=== PATIENT | male | born 1955 | race American Indian/Alaskan Native ===

== ENCOUNTER 2019-11-27 05:55 | Day surgery (SDC) | payer OTHER, SELFPAY ==
[2019-11-22 08:42] VITALS: BMI 25.7
[2019-11-27] VITALS (11 sets, daily range): BP systolic 80–146; BP diastolic 42–98; PULSE 57–92; RESP 10–18; TEMP 36.2–36.7; O2SAT 97–100; BMI 25.7
--- NOTE | 2019-11-27 06:00 | DI.RAD.S_ITS ---
PROCEDURE: XR KNEE RT 1TO2V INDICATIONS: post op TECHNIQUE: 2 view(s) of the knee acquired. COMPARISON: [facility] LIZZIE Thompson, XR KNEE ARTHRITIC SERIES RT, 06/07/2018, 9:05. FINDINGS: Bones: Patient is status post knee joint arthroplasty. Hardware components are in expected positions. Visualized bony structures are intact. Soft tissues: Overlying postoperative changes are noted. IMPRESSION: Expected postoperative alignment Dictated by: Michael Laguerre M.D. on 11/27/2019 at 10:06 Approved by: Michael Laguerre M.D. on 11/27/2019 at 10:07
[2019-11-27] MEDS: PREGABALIN 75 MG CAPSULE PO (06:54)
[2019-11-27] MEDS: ACETAMINOPHEN 325 MG TABLET 975 MG PO (06:55)
[2019-11-27] MEDS: CELECOXIB 200 MG CAPSULE PO (06:55)
--- NOTE | 2019-11-27 07:30 | P.OP_ITS ---
Operative Date/Time/Diagnoses Date of procedure: 11/27/19 Time of procedure: 09:31 Pre-op diagnosis: Right knee osteoarthritis Post-op diagnosis: same Procedure & Clinicians Procedure: Right total knee arthroplasty Same procedure as scheduled: Yes Indications: The patient presents today for total knee arthroplasty after failure of conservative treatment. The nature of the procedure including the risks and benefits, alternatives, postoperative course and expected outcome were discussed and all questions answered. Consent was obtained. Operative site confirmed and marked. Surgeon: Piotr Hutchison Forest [employer] Prevention Specialist: Arvind Coe Anesthesia Type: General, Spinal and Local Operative Notes Findings: The patient had a significant preoperative flexion contracture of 12- 15 degrees. A +2 femoral cut was initially made. The initial tibial cut took approximately 8 mm off the less affected medial side. The knee was still tight in both flexion and extension so another 2 mm was removed from the tibia. The knee was still somewhat tight laterally especially in extension. Releases were done of the lateral capsule using a 15 blade in a pie crust technique. This nicely balance the knee in both flexion and extension. The knee went out to full extension with the releases with flexion beyond 135?. Patellar tracking was excellent. Closure Type: primary Specimen(s): none sent Prosthetic devices, grafts, tissues, transplants, or devices: Foley and Nephew Norberto BCS: 8 femoral component, 7 tibial component, 9 mm BCS polyethylene tray and 38 x 9 mm round patella Applied: implant(s) Estimated Blood Loss (mL): 10 Tourniquet time (min): 60 Procedure in detail: The patient was taken to the operative suite and placed under anesthesia. The patient was given prophylactic antibiotics prior to surgery. The patient was also given tranexamic acid, 1 g, just prior to surgery for postoperative hemostasis. The lateral knee was prepped and the joint injected with 20 mL of 1% Lidocaine with epinephrine. The knee was then prepped and draped in usual sterile fashion. The leg was exsanguinated with an Esmarch dressing and the tourniquet raised to 250 torr. A 15 cm anterior incision was made. Next a medial trivector arthrotomy was made. The extensor mechanism was marked to ensure accurate repair. Initial exposing dissection was carried out medially and laterally. The knee was then flexed and the intramedullary femoral guide junie placed. The distal femoral cut was made in 6? of valgus at the +2 position. The femoral size was measured and the appropriate cutting block was then placed and the anterior, posterior and chamfer cuts made. The intramedullary tibial alignment junie was then placed. The guide was set to remove approximately 8 mm from the less affected medial side. The proximal tibial cut was then made with an oscillating saw. All meniscus and bony debris was then removed. Posterior femoral osteophytes removed with a curved osteotome. Flexion extension gaps were checked. The knee was still tight in both flexion and extension. Another 2 mm was removed from the tibia which balanced the gaps. There was still some tightness laterally especially in extension. The lateral capsule was released to balance the knee using a pie crust technique with a 15 blade. The soft tissues were then injected with a combination of 20 mL of half percent Marcaine with epinephrine and 20 mL of Exparel. The trial components were then placed. The knee was then extended and the patellar thickness was measured and a cut made removing approximately 9 mm of bone. The patella was then sized and drilled. Some excess lateral bone was excised and the patellofemoral ligament released. The knee went into full extension and flexion beyond 135?. There was excellent medial-lateral balance throughout motion. Patellar tracking was excellent. The trial components were removed and the knee was cleansed with Pulsavac irrigation and dried. The final components were cemented with high viscosity vacuum mixed bone cement with antibiotics. The joint was filled with a dilute Betadine solution. The knee was held in extension and the patellar clamped until the cement was adequately cured. The knee was then irrigated. The extensor mechanism was closed with 5 interrupted #1 Vicryl sutures and a running Quill suture at approximately 90 degrees of flexion. The joint was then injected with a combination of 1 g of tranexamic acid and 20 mL of quarter percent Marcaine with epinephrine. The subcutaneous tissue was closed with 2 0 Vicryl. The skin was closed with sharon and surgical adhesive. An Aquacel dressing and Stas wrap were then applied. The patient tolerated the procedure well and was returned to recovery room in good condition. Complications: none Post-operative Condition: stable Disposition: PACU Plan for aftercare: [facility] protocol for total knee arthroplasty.
--- NOTE | 2019-11-27 07:30 | PM.PREOP ---
Pre-operative Note Interval Note History & Physical reviewed/Exam performed by Physician: Yes Changes to H&P: No
[2019-11-27] MEDS: CEFAZOLIN 2 GM/100 ML FROZ.PIGGY IV ×2 (07:49→15:58)
[2019-11-27] MEDS: TRANEXAMIC ACID 1,000 MG VIAL 1000 MG IV (08:19)
--- NOTE | 2019-11-27 08:33 | SUR.OPER ---
Addendum entered by Michael Islas R.N. 11/27/19 08:34: Hip brace secured to right side of OR table. Original Note: Supine on padded OR bed. Pillow under head, arms secured on padded armboards <90 degree abduction. Safety belt across torso. Non-operative leg secured with tape over blanket over lower leg. Sandbag used as bump under right hip.Operative leg secured in Mic positioner. Foam padded brace at thigh of operative leg.
[2019-11-27] MEDS: BUPIVACAINE 0.25% W/ EPI (PF) 40 ML, BUPIVACAINE LIPOSOME 266 MG, SODIUM CHLORIDE 0.9% ... INJ (08:56)
[2019-11-27] MEDS: BUPIVACAINE 0.25% W/ EPI (PF) 20 ML, TRANEXAMIC ACID 1,000 MG, SODIUM CHLORIDE 0.9% 10 ML INJ (08:58)
[2019-11-27] MEDS: LIDOCAINE 1% W/EPI 20 ML INJ (09:00)
[2019-11-27] MEDS: LACTATED RINGERS 1,000 ML 42 ML IV (09:07)
--- NOTE | 2019-11-27 10:05 | SUR.PHASEI ---
first bag of LR hung in preop, 1000cc infused in OR and 2nd bag of LR hung in OR by WATER TREATMENT PLANT REPAIRER. total IV fluid for pt = 1400cc
[2019-11-27] MEDS: LACTATED RINGERS 1,000 ML 125 ML IV (11:02)
[2019-11-27] MEDS: IBUPROFEN 400 MG TABLET PO (12:05)
--- NOTE | 2019-11-27 12:14 | PC.NURSE ---
Addendum entered by Kristy Bear R.N. 11/27/19 14:35: PAIN - pt states discomfort r ankle, moving freely on command, adjusted pillow support, ice pack applied, given scheduled tylenol, phys therapy in now for eval. Addendum entered by Kristy Bear R.N. 11/27/19 12:56: PAIN - r knee discomfort remains 4-5 on scale 0/10, did lilian lunch, discussed medications and pt agreed to oxycodone and given 10mg po. 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
[2019-11-27] MEDS: OXYCODONE IR 10 MG TABLET PO ×2 (12:58→16:01)
--- NOTE | 2019-11-27 14:29 | PT.IIE ---
Current Diagnoses Unilateral primary osteoarthritis, right knee (11/27/19) Surgery Performed Operation Date: 11/27/19 07:45 Actual Procedures p Total Knee Arthroplasty(Right) - Piotr Hutchison MD Surgical History (Last Updated 11/22/19 @ 09:13 by Crissy Cruz RN) Hx of hernia repair (Acute ~1999) Hx of tonsillectomy (Acute) Medical History (Last Updated 11/22/19 @ 09:13 by Crissy Cruz RN) Depression (Acute) Diverticulosis (Acute) Hand fracture, right (Acute ~1994) Hearing impaired (Acute) HLD (hyperlipidemia) (Acute) HTN (hypertension) (Acute) Jaw fracture (Acute ~1977) Left ulnar fracture (Acute ~1972) Osteoarthritis (Acute) Physical Therapy Inpatient Evaluation/Re-Eval M1 PT/OT-IP Prior Functional Status Start: 11/27/19 16:51 Freq: NEEDED Status: Active Protocol: Document 11/27/19 14:29 AB (Rec: 11/27/19 17:00 AB [id number]) Medical Review Prior Functional Status Medical History Reviewed Yes Communication able to make needs known Mobility and Gait pt stated that he is independent with all mobilities and ambulation without AD Social History Household Members spouse,family Living Arrangements House Number of Floors (Floors) One Floor Home Environment Ramp Home Equipment Front Wheel Walker,Straight Cane,Manual Wheelchair M2 PT-IP Current Condition Start: 11/27/19 16:51 Freq: NEEDED Status: Active Protocol: Document 11/27/19 14:29 AB (Rec: 11/27/19 17:00 AB [id number]) Physical Therapy Current Condition Current Condition Evaluation Date 11/27/19 Treatment Diagnosis s/p R TKA; difficulty in walking Onset Date 11/27/19 Weight Bearing Status Weight Bearing Status Weight Bear as Tolerated M3 PT-IP Subjective Start: 11/27/19 16:51 Freq: NEEDED Status: Active Protocol: Document 11/27/19 14:29 AB (Rec: 11/27/19 17:00 AB [id number]) Subjective Physical Therapy Visit Type Type Initial Evaluation Visit Start Time 14:29 Visit Stop Time 15:04 Total Visit Minutes 33 Number of BAND MAKER Visits 0 Physical Therapy Visit Comments Patient Comments pt agreeable to do PT Therapy Pain Assessment Pain When Pain Assessed At Rest Location Right Knee Intensity 5 Scale Used Numeric (1 - 10) Pain Management Techniques Apply Cold,Re-positioning, Timing of Activity with Medications M4 PT-IP Mobility and Gait Start: 11/27/19 16:51 Freq: NEEDED Status: Active Protocol: Document 11/27/19 14:29 AB (Rec: 11/27/19 17:00 AB [id number]) PT-Bed Mobility Assessment Supine to Sit Supine to Sit Standby Assistance Sit to Supine Sit to Supine Standby Assistance Scooting Scooting to Edge of Bed Standby Assistance PT-Transfer Assessment Sit to and From Stand Sit to and from Stand Standby Assistance Equipment Transfer Assistive Device Gait Belt,Front Wheeled Walker Orthotic/Prosthetic Devices or Brace: No Transfers Transfer Destination Chair Transfer Technique ambulated using FWW Transfer Ability Level of Assist Standby Assistance Gait Assessment Gait Gait Assistance Required: Standby Assistance Distance (Feet) 80 Able to Maintain Weight Bearing Status Yes During Gait Assistive Devices Assistive Device Gait Belt,Front Wheeled Walker Orthotic/Prosthetic Devices or Brace: No Gait Deviations General Gait Pattern Antalgic Factors Limiting Gait Function Factors Limiting Gait Function Decreased Activity Tolerance, Decreased Strength,Pain,Poor Balance Comments Gait Comments pt ambulated using FWW SBA ~ 80 ft. presents with antalgic gait but no LOB PT-Balance Assessment Sitting Balance and Reactions Static Sitting Balance Ability Normal Dynamic Sitting Balance Ability Good Standing Balance and Reactions Static Standing Balance Ability Fair Dynamic Standing Balance Ability Fair Device Used FWW M5 PT-IP Objective Assessments Start: 11/27/19 16:51 Freq: NEEDED Status: Active Protocol: Document 11/27/19 14:29 AB (Rec: 11/27/19 17:00 AB [id number]) Orientation Orientation/Cognition Level of Alertness Alert Orientation Name,Age,Place,Situation Language Function Ability No Deficits Noted Safety Awareness Understands Safety Issues Memory Description No Deficits Noted Gross Range of Motion Lower Extremity ROM Assessment Within Functional Limits Impairments R knee flexion: ~ 100 deg Strength Lower Extremity Strength Assessment Right Impaired Hip 4/5 Knee 3+/5 Coordination Assessment Gross Coordination Gross Coordination WNL Sensation Assessment Sensation Gross Sensation WNL Muscle Tone Muscle Tone WNL Yes M6 PT-IP Treatment Start: 11/27/19 16:51 Freq: NEEDED Status: Active Protocol: Document 11/27/19 14:29 AB (Rec: 11/27/19 17:00 AB [id number]) Physical Therapy Treatment Exercises Exercises Heel Slides Education Education Provided Precautions,Weight Bearing Status,Post-Op Packet,Safety M7 PT-IP Assessment and Plan Start: 11/27/19 16:51 Freq: NEEDED Status: Active Protocol: Document 11/27/19 14:29 AB (Rec: 11/27/19 17:00 AB [id number]) PT Summary Assessment and Plan Potential Rehabilitation Potential Good Status of Condition at Evaluation Stable Summary Impairments Pain,ROM,Strength,Balance,Bed Mobility,Transfers,Gait, Activity Tolerance Assessment Summary pt requiring SBA with mobility and plans to go home with spouse to assist him. pt is set up for outpt PT. pt may go home when medically stable Goals Bed Mobility Goal Independent Transfer Goal Independent,Front Wheeled Walker Gait Goal Independent,Front Wheel Walker Gait Distance 200 Days to Meet Goals 3 Frequency of Treatment Frequency Of Treatment Twice a Day Treatment Plan Physical Therapy Treatment Plan Bed Mobility Training,Transfer Training,Gait Training, Therapeutic Exercise,Balance Retraining,Post Op Education, Discharge Planning,Hot or Cold Pack,Neuromuscular Re-ed, Coordination Retraining,Manual Therapy Recommendations To Nursing Amount of Assist Needed Standby Assistance Discharge Recommendations PT Discharge Recommendations Home with Assistance, Outpatient PT
[2019-11-27] MEDS: ACETAMINOPHEN 325 MG TABLET 650 MG PO (14:30)
[2019-11-27] MEDS: SIMVASTATIN 20 MG TABLET PO (14:47)
--- NOTE | 2019-11-27 15:27 | PM.DS.1 ---
History of Present Illness History of Present Illness Date Patient Seen: 11/27/19 Time Patient Seen: 15:27 Chief complaint: Right Total Knee Arthroplasty *OPB* Narrative: Patient's pain is [id number]. Denies fever chills. No nausea vomiting. Patient has been up and walked 70 ft with physical therapy. No steps in his house. is home to assist him. Patient wishes to be discharged home today if safe to do so. Discharge Providers Provider Discharge Date: 11/27/19 Consults: 11/27/19 10:41 Consult to Discharge Planning Routine Comment: Consult to Physical Therapy Evaluate & Treat Comment: Physician Instructions: postop TKA protocol Consult to Respiratory Therapy Evaluate & Treat Comment: Physician Instructions: Evaluate and treat Discharge provider: Arvind Coe PA-C Summary Hospital Course Discharge Diagnosis: Status post right total knee arthroplasty secondary to severe right knee osteoarthritis Hospital Course: Patient failed outpatient conservative treatment for severe right knee OA. Patient admitted to the hospital for right total knee arthroplasty. Patient consented to the same. Patient taken to the operating room underwent right total knee arthroplasty. No complications. Patient to be discharged home today. Status at Discharge Cognitive/behavioral status at discharge: at baseline, oriented Functional status at discharge: uses cane/walker Overall status at discharge: patient is progressing back to baseline Time Spent with Patient Time spent: Less than 30 minutes Exam Vital Signs (past 8 hours): - 11/27/19 09:34 11/27/19 09:39 11/27/19 09:44 Temperature 97.5 F L Pulse Rate 68 73 61 Respiratory Rate 16 13 10 L Blood Pressure 103/59 L 80/42 L 101/60 Pulse Oximetry 97 98 99 11/27/19 09:49 11/27/19 09:58 11/27/19 10:15 Temperature 97.2 F L 97.3 F L Pulse Rate 67 66 57 L Respiratory Rate 11 L 15 16 Blood Pressure 100/52 L 117/66 124/71 Pulse Oximetry 100 100 100 11/27/19 11:15 11/27/19 12:15 11/27/19 13:15 Temperature 97.5 F L 98.1 F Pulse Rate 61 76 74 Respiratory Rate 16 16 16 Blood Pressure 120/75 146/76 H 145/92 H Pulse Oximetry 99 100 100 Oxygen Delivery Method Room Air Oxygen Flow Rate 0 Narrative Exam Narrative: 64-year-old male resting comfortably in bedside chair in no apparent distress. Right knee dressing is clean, dry and intact. Right leg is warm and dry. Motor functions intact distally. Sensation grossly intact to light touch. Discharge Plan Discharge Plan Patient Disposition: Home Discharge Med Rec/Prescriptions Prescriptions: Continued lisinopril-hydrochlorothiazide 20-12.5 mg Tablet 1 tab PO DAILY RF: 0 aspirin [Aspir-81] 81 mg Tablet,Delayed Release (Dr/Ec) 81 mg PO DAILY RF: 0 citalopram 20 mg Tablet 20 mg PO DAILY RF: 0 simvastatin 20 mg Tablet 20 mg PO QAM RF: 0 Follow up/Referrals: Piotr Hutchison MD [Physician] - (1 wk) Discharge Orders: Discharge (Order); Ordered 11/27/19 Ordered By: Arvind Coe Provider Discharge Instructions Diet: Diet as Tolerated Activity: per [facility] Cold/Heat Therapy: per [facility] Other treatments: Aspirin 81 mg b.i.d.. Tylenol 500 mg every 4 hours, ibuprofen 400 mg every 4 hours. Patient has prescription of oxycodone to be taken as directed as needed for pain. Skin/Wound/Dressing Care Report to your healthcare provider any signs of infection, such as:: chills, fever, increased pain, unusual drainage and unusual redness Dressing: keep clean and dry Visit Report/Discharge Packet Instructions: DI for Knee Replacement Stand Alone Forms: Surgery Discharge Discharge Data Attending Provider: Piotr Hutchison Quality VTE Deep Vein Thrombosis/Pulmonary Embolism Present on Admission: No
--- NOTE | 2019-11-27 17:11 | PC.NURSE ---
HEAVEN in to see pt and decides with pt and spouse to discharge to home. Pt reports sensation mostly returned to RLE. Able to push and pull with feet BL. Palpable post tib pulses BL. Pt reports pain R knee 4/10 and was medicated with oxycodone prior to discharge. Spouse present and states feels prepared to manage pt at home. Pt and spouse given verbal and written discharge instructions. Questions answered as appropriate. Pt left hospital with COMMUNICATION ANALYST escort with all personal belongings accounted for. Pt left hospital with spouse in stable condition. Pt voided without difficulty prior to discharge to home.
== END 2019-11-27 16:45 | disposition home or self-care (01) ==
LOC: OR 09:29 → AC 09:30
PROVIDERS: Visit Provider Orthopaedic Surgery
PROC: 0SRC0JZ Replacement of Right Knee Joint with Synthetic Substitute, Open Approach (ICD-10-PCS; CPT 27447; principal; 2019-11-27 07:45)
DX: M17.11 Unilateral primary osteoarthritis, right knee (principal); I10 Essential (primary) hypertension; E78.5 Hyperlipidemia, unspecified; F32.9 Major depressive disorder, single episode, unspecified; Z87.891 Personal history of nicotine dependence
CPT/HCPCS: 27447; 73560; 97161; C1776; C9290; J0690; J1100; J2250; J2405; J2704; J3010